=== PATIENT | male | born 1995 | race Caucasian/White ===

== ENCOUNTER 2019-05-28 16:02 | Emergency (ER) | payer OTHER, MEDICAID, SELFPAY ==
[2019-05-28 16:12] VITALS: BP 131/78; PULSE 99; RESP 16; TEMP 36.6; O2SAT 99
--- NOTE | 2019-05-28 18:02 | DI.RAD.S_ITS ---
PROCEDURE: XR CHEST 2V INDICATIONS: fever, chills, cough TECHNIQUE: 2 views of the chest were acquired. COMPARISON: None. FINDINGS: Surgical changes and devices: None. Lungs and pleura: Lungs are clear. No pleural effusions or pneumothorax. Mediastinum: Mediastinal contours are normal. Heart size is normal. Bones and chest wall: No suspicious bony abnormalities. Soft tissues appear unremarkable. IMPRESSION: No acute cardiopulmonary pathology. Dictated by: Parish Mckenzie M.D. on 05/28/2019 at 18:33 Approved by: Parish Mckenzie M.D. on 05/28/2019 at 18:33
[2019-05-28] MEDS: ACETAMINOPHEN 325 MG TABLET 975 MG PO (18:19)
[2019-05-28 18:27] LABS: Influenza A and B by PCR Rapid Negative (Negative)
--- NOTE | 2019-05-28 18:29 | ED.URI ---
HPI - URI/Sore Throat <LATESHA Eldridge - Last Filed: 05/28/19 18:57> General Chief Complaint: Upper Respiratory Symptoms Stated Complaint: Sore throat Time Seen by Provider: 05/28/19 17:30 Source: patient Mode of arrival: Ambulatory Limitations: no limitations History of Present Illness HPI Narrative: This is a 24-year-old male, nonsmoker, who presents with father with chief complain of nasal congestion, sore throat, feeling dizzy, subjective feeling hot and chills, sinus pressure and coughing for last 2 days. Patient denies any history of respiratory or immunocompromised conditions. Patient denies recent exposure to illness, foreign country travel. Patient denies receiving flu vaccination for this season. Patient had tried rest and increasing p.o. fluid intake at home to help with his symptoms but no other medications were taken. Review of Systems <LATESHA Eldridge - Last Filed: 05/28/19 18:57> Review of Systems Narrative: General: See HPI HEENT: See HPI Respiratory: Denies dyspnea, wheezing, hemoptysis, sputum. Reports productive coughing. Cardiovascular: Denies chest pain, palpitations, orthopnea, edema. Gastrointestinal: Denies nausea, vomiting, abdominal pain, diarrhea, constipation, melena. : Denies dysuria, frequency, incontinence, hematuria, urinary retention. Musculoskeletal: Denies weakness, joint pain or bony pain. Skin: Denies rash, skin lesions, or other. Neurologic: Denies weakness, headache, numbness, change in speech, confusion, seizures, incoordination. Psychiatric: No concerning psychosocial issues. 12-point review of systems is negative except for those stated above. Patient History <LATESHA Eldridge - Last Filed: 05/28/19 18:57> Social History Smoking Status: Never smoker Social History Smoking Status: Never smoker Exam <LATESHA Eldridge - Last Filed: 05/28/19 18:57> Narrative Exam Narrative: GEN: Alert, oriented x 3, well nourished, and in no acute distress. Head: Normal cephalic, atraumatic. No scalp or temporal tenderness, palpable mass or rash. EYES: Pupils are equal, round, and reactive to light and accommodation. Extraocular muscles are intact bilaterally. There is no subconjunctival hemorrhage, exudate and sclera non-icteric. ENT: Bilateral auditory canals and tympanic membranes clear. Hearing grossly intact. Nose without bleeding, purulent discharge or deviation. Facial sinuses nontender to palpate. Mucous membrane moist, no mucosal lesion. Throat tonsillar mild hypertrophy without erythema, or exudate. Uvula in midline, airway patent. Neck: Trachea in midline. No JVD, non-tender without lymphadenopathy. No masses or thyroid megaly. Supple, non-tender and no meningeal signs. CARDIAC: Normal regular rate and rhythm without murmurs, gallops, or rubs. No chest wall tenderness. No peripheral edema, cyanosis or pallor. Capillary refill is less than 2 seconds. RESPIRATORY: Lungs are cleat to auscultate bilaterally. No cough, wheezes, rales, or rhonchi. No stridor, respiratory distress, increase work of breathing, or accessary muscle used. ABD: Abdomen soft, nontender and non-distended. No guarding or rebound tenderness to palpate. Bowel sounds are normal in all 4 quadrants. There is no palpable masses or organomegaly. EXT: Full painless ROM of all extremities with no loss of sensation, strength, effusion or edema. SKIN: Warm, dry, normal color for patient. No erythema, lesions or rash over visible areas. BACK: Nontender without deformity or crepitance. No flank tenderness. NEUROLOGICAL: Alert and oriented to place, time and person. Sensation and motor function intact bilaterally. No facial droops, dysphasia. PSYCHIATRIC: Good judgement and reason, without hallucinations, abnormal affect or abnormal behaviors during the examination. Initial Vital Signs Initial Vital Signs: Vital Signs Temperature 97.8 F 05/28/19 16:12 Pulse Rate 99 H 05/28/19 16:12 Respiratory Rate 16 05/28/19 16:12 Blood Pressure 131/78 05/28/19 16:12 Pulse Oximetry 99 05/28/19 16:12 <Kendra Vela MD - Last Filed: 05/29/19 07:54> Initial Vital Signs Initial Vital Signs: Vital Signs Temperature 97.8 F 05/28/19 16:12 Pulse Rate 99 H 05/28/19 16:12 Respiratory Rate 16 05/28/19 16:12 Blood Pressure 131/78 05/28/19 16:12 Pulse Oximetry 99 05/28/19 16:12 Course <LATESHA Eldridge - Last Filed: 05/28/19 18:57> Orders Ordered: Discontinued Medications Acetaminophen (Tylenol) 975 mg PO NOW ONE Stop: 05/28/19 18:03 Last Admin: 05/28/19 18:19 Dose: 975 mg Documented by: OLIVIER Vital Signs Vital signs: Vital Signs - 8 hr 05/28/19 16:12 05/28/19 18:48 Temperature 97.8 F 98.3 F Pulse Rate 99 H 90 Respiratory Rate 16 16 Blood Pressure 131/78 Blood Pressure [Left Arm] 128/75 Pulse Oximetry 99 98 <Kendra Vela MD - Last Filed: 05/29/19 07:54> Orders Ordered: Discontinued Medications Acetaminophen (Tylenol) 975 mg PO NOW ONE Stop: 05/28/19 18:03 Last Admin: 05/28/19 18:19 Dose: 975 mg Documented by: OLIVIER Vital Signs Vital signs: Vital Signs - 8 hr 05/28/19 16:12 05/28/19 18:48 Temperature 97.8 F 98.3 F Pulse Rate 99 H 90 Respiratory Rate 16 16 Blood Pressure 131/78 Blood Pressure [Left Arm] 128/75 Pulse Oximetry 99 98 MDM - URI/Sore Throat <LATESHA Eldridge - Last Filed: 05/28/19 18:57> Differential Diagnosis Differential diagnosis: Likely upper respiratory infection, viral infection, bronchitis and pharyngitis Medical Records Attestation: I reviewed the patient's medical records. Lab Data Attestation: I reviewed the patient's lab results. Labs: Lab Results 05/28/19 Range/Units 18:00 Influenza A & B (PCR) Negative (Negative) Point of Care Testing Rapid Strep A Negative Imaging Data Chest x-ray: Radiologist's impression: [address] [address] XRay Report Signed Patient: Ruben Foster JMR#: [id number] : 1995Acct:[id number] Age/Sex: 24 / MDate of Service: 05/28/19 Loc: ED Accession Number: [id number] Procedure: XR chest 2V Ordering Provider: Unruly Vieira PROCEDURE: XR CHEST 2V INDICATIONS: fever, chills, cough TECHNIQUE: 2 views of the chest were acquired. COMPARISON: None. FINDINGS: Surgical changes and devices: None. Lungs and pleura: Lungs are clear. No pleural effusions or pneumothorax. Mediastinum: Mediastinal contours are normal. Heart size is normal. Bones and chest wall: No suspicious bony abnormalities. Soft tissues appear unremarkable. IMPRESSION: No acute cardiopulmonary pathology. Dictated by: Parish Mckenzie M.D. on 05/28/2019 at 18:33 Approved by: Parish Mckenzie M.D. on 05/28/2019 at 18:33 [facility] Narrative Medical decision making narrative: This is a 24-year-old male who presents to ED with subjective fever and chills, cough, nasal congestion, and sore throat. Flu swab and strep throat swab were negative. Lungs were clear to auscultate without increased work of breathing. Chest x-ray shows no acute findings such as pneumonia. Patient was afebrile in ED and was able to tolerate fluids without nausea or vomiting. Patient was treated with Tylenol for discomfort. Patient discharged to home with URI and advised supportive care for symptomatic treatment with increased oral hydration. Return precautions were discussed with the patient and advised to follow and information for [facility] phone number has been provided. Patient verbalized understanding and agrees with treatment plan. <Kendra Vela MD - Last Filed: 05/29/19 07:54> Lab Data Labs: Lab Results 05/28/19 Range/Units 18:00 Influenza A & B (PCR) Negative (Negative) Point of Care Testing Rapid Strep A Negative Discharge Plan Departure Patient Disposition: Home Clinical Impression: URI (upper respiratory infection) Qualifiers: URI type: unspecified URI Qualified Code(s): J06.9 - Acute upper respiratory infection, unspecified Discharge Date/Time: 05/28/19 18:57 Instructions: DI for Viral Upper Respiratory Infection -- Adult Activity Restrictions/Additional Instructions: You have been diagnosed with [upper respiratory infection likely from virus origin. Strep throat infection and flu swab were negative. Chest x-ray was unremarkable]. What to do: *Take your medications as directed. You can take [id number] Tylenol and or Motrin as needed for fever and discomfort. You can take up to Tylenol 4000 mg in 24 hour. Also, you can take ibuprofen 600-800 mg 3 times a day with food for discomfort and fever. [id number] Mucinex DM would help with cough and congestion. Please increase oral hydration *Follow up with your primary care provider in 2-3 days, call for an appointment. Let them know you were seen in the ED and that we asked you to be seen in follow up. *Return to ED if you have any new, worsening, or concerning symptoms, such as [chest pain, breathing difficulty, feeling faint, fever after Tylenol and Motrin, or any acute concerns]. Referrals: [facility] [Provider Group] (Walk in clinic) [facility] [Outside]
[2019-05-28 18:48] VITALS: BP 128/75; PULSE 90; RESP 16; TEMP 36.8; O2SAT 98
== END 2019-05-28 18:57 | disposition home or self-care (01) ==
PROVIDERS: Emergency Provider Nurse Practitioner Family
DX: J06.9 Acute upper respiratory infection, unspecified (principal); R50.9 Fever, unspecified; R05 Cough
CPT/HCPCS: 71046; 87400; 87502; 87880; 99282; 99283

== ENCOUNTER 2024-05-26 14:18 | Emergency (ER) | payer OTHER, MEDICAID, SELFPAY ==
[2024-05-26 14:59] VITALS: BP 131/75; PULSE 77; RESP 16; TEMP 36.5; O2SAT 99; BMI 34.2
[2024-05-26 17:39] VITALS: BP 127/72; PULSE 71; RESP 18; TEMP 36.8; O2SAT 99
--- NOTE | 2024-05-27 16:40 | ED_ITS ---
<Statement entered by Jean Pierre Garcia DO - 05/28/24 07:03> Dr. Garcia: I was immediately available in the department for consultation. Documentation has been reviewed. I agree with assessment and plan. HPI - Ear Problem General Chief complaint: Ear Stated complaint: ear px Time Seen by Provider: 05/26/24 15:54 Source: patient Mode of arrival: Ambulatory History of Present Illness HPI Narrative: 29-year-old male presents to the ED with 5 days of left-sided ear pain and fullness. Patient also endorses chills. No fever. Patient states that he has had a cough for a few days prior to the ear symptoms. No nausea, vomiting. No changes in hearing. Related Data Previous Rx's Medication Instructions Recorded amoxicillin 875 mg tablet 875 mg PO Q12H 7 days #14 tabs 05/26/24 Allergies Allergy/AdvReac Type Severity Reaction Status Date / Time No Known Drug Allergies Allergy Verified 05/26/24 15:03 Review of Systems Constitutional Constitutional: Denies chills, Denies fatigue, Denies fever(s), Denies frequent falls, Denies lethargy and Denies weakness Eyes Eyes: Denies change in vision, Denies eye discharge, Denies irritation and Denies loss of vision ENT Ears, Nose, Mouth, and Throat: Denies change in voice, Denies dizziness, Reports otalgia, Denies neck pain, Denies sore throat and Denies throat swelling Comments: Left-sided ear pain and fullness Cardiovascular Cardiovascular: Denies chest pain, Denies irregular heart rhythm, Denies lightheadedness, Denies palpitations, Denies dyspnea, Denies dyspnea on exertion and Denies orthopnea Respiratory Respiratory: Denies cough, Denies dyspnea, Denies dyspnea on exertion and Denies wheezing Gastrointestinal Gastrointestinal: Denies abdominal pain, Denies change in bowel habits, Denies diarrhea, Denies nausea and Denies vomiting Musculoskeletal Musculoskeletal: Denies neck pain and Denies numbness Integumentary/Breasts Skin/Breast: Denies pruritus, Denies erythema, Denies rash and Denies wounds Neurologic Neurologic: Denies behavioral changes, Denies confusion, Denies dizziness, Denies frequent falls, Denies loss of vision, Denies numbness and Denies weakness Psychiatric Psychiatric: Denies anxiety, Denies behavioral changes, Denies confusion, Denies depression, Denies homicidal ideation and Denies suicidal ideation Endocrine Endocrine: Denies fatigue, Denies flushing and Denies palpitations Hematologic/Lymphatic Hematologic/Lymphatic: Denies easy bruising Allergic/Immunologic Allergic/Immunologic: Denies urticaria, Denies throat swelling and Denies wheezing Patient History Social History Smoking Status: Never smoker Smoking Status: Never smoker Substance Use Type: does not use Exam Narrative Exam Narrative: Const General:?cooperative, healthy appearing and comfortable [facility] Head:?normal to inspection Ears:?hearing grossly normal bilaterally; left tympanum is bulging and yovany thematous Nose:?external nose normal Face and sinus:?normal facial exam and sinuses nontender Mouth:?oral mucosae normal Throat:?posterior oropharynx normal Eyes General:?appearance normal, both eyes and all related structures Neck Neck:?normal visual inspection and no lymphadenopathy noted Resp Effort & Inspection:?normal respiratory effort Auscultation:?clear to auscultation bilaterally Cardio Rate:?regular rate Rhythm:?regular rhythm Neuro General:?patient alert, patient awake and patient oriented x3 Initial Vital Signs Initial Vital Signs: Vital Signs Temperature 97.7 F 05/26/24 14:59 Pulse Rate 77 05/26/24 14:59 Respiratory Rate 16 05/26/24 14:59 Blood Pressure 131/75 05/26/24 14:59 Pulse Oximetry 99 05/26/24 14:59 Oxygen Delivery Method Room Air 05/26/24 14:59 Medical Decision Making [facility] Narrative Medical decision making narrative: 29-year-old male presents to the ED with 5 days of left-sided ear pain and fullness. Physical exam consistent with otitis media of the left ear. Prescribed antibiotics. ED return precautions discussed with patient. Patient verbalized understanding. Medical records reviewed: Yes Discharge Plan Departure Patient Disposition: Home Clinical Impression: Otitis media Qualifiers: Otitis media type: unspecified Chronicity: acute Qualified Code(s): H66.90 - Otitis media, unspecified, unspecified ear Instructions: Middle Ear Infection Activity Restrictions/Additional Instructions: You were evaluated in the ED today for ear pain. You are being prescribed antibiotics for ear infection. Please take them as prescribed. Please follow- up with your PCP as soon as possible. Return to the ED if you have worsening symptoms. Prescriptions: New amoxicillin 875 mg tablet 875 mg PO Q12H 7 Days Qty: 14 0RF Referrals: Miscellaneous,Doctor, MD [Primary Care Provider] - Stand Alone Forms: Patient Portal/API
== END 2024-05-26 17:40 | disposition home or self-care (01) ==
PROVIDERS: Emergency Provider Student in an Organized Health Care Education/Training Program
DX: H66.92 Otitis media, unspecified, left ear (principal)
CPT/HCPCS: 99281